=== PATIENT | male | born 1980 | race African-American/Black ===

== ENCOUNTER 2023-07-07 13:37 | Emergency (ER) | payer MEDICARE, OTHER ==
[2023-07-07 14:15] VITALS: O2SAT 99
--- NOTE | 2023-07-07 14:34 | XRAY Report ---
PROCEDURE: Shoulder 2+V RT INDICATIONS: injury TECHNIQUE: 3 views of the shoulder were acquired. COMPARISON: None. FINDINGS: Bones: No fractures or dislocations. No suspicious bony lesions. Visualized ribs appear intact. Soft tissues: No suspicious soft tissue calcifications. The visualized lungs are within normal limi ts. IMPRESSION: No acute fracture. No osseous lesion. If symptoms and/or clinical suspicion for patholog y continue, further assessment with repeat plain films, or advanced imaging (e.g., CT, MRI, or bone s can) is recommended for further assessment. Reviewed by: Jose Buenrostro MD on 07/07/2023 2:32 PM PST Approved by: Jose Buenrostro MD on 07/07/2023 2:32 PM PST Station ID: [id number]
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
[2023-07-07] MEDS: ACETAMINOPHEN 325 MG TABLET PO STA (17:11)
[2023-07-07] MEDS: IBUPROFEN 600 MG TABLET PO STA (17:11)
[2023-07-07 17:28] VITALS: BP 146/92
== END 2023-07-07 17:19 | disposition home or self-care (01) ==
LOC: ED 13:37
DX: S43.51XA Sprain of right acromioclavicular joint, initial encounter (principal); V49.9XXA Car occupant (driver) (passenger) injured in unspecified traffic accident, initial encounter; F17.200 Nicotine dependence, unspecified, uncomplicated
CPT/HCPCS: 73030; 99283; A9270

== ENCOUNTER 2024-08-22 08:04 | Inpatient (IN) ==
[2024-08-22] MEDS: ALPRAZolam 0.25 MG TABLET PO STA (09:08)
[2024-08-22] MEDS: cefTAZidime 2 GM in SODIUM CHLORIDE 0.9% MINIBAG 100 ML IV STA (09:33)
[2024-08-22] MEDS: VANCOMYCIN INJ 1 GM, VANCOMYCIN INJ 500 MG in SODIUM CHLORIDE 0.9% 500 ML IV STA (10:05)
--- NOTE | 2024-08-22 10:51 | XRAY Report ---
PROCEDURE: XR Hand 3+V RT INDICATIONS: infection TECHNIQUE: 3 views of the hand(s) acquired. COMPARISON: None. FINDINGS: Bones: No fractures or dislocations. No suspicious bony lesions. Soft tissues: No suspicious soft tissue calcifications or masses. Diffuse soft tissue swelling in th e hand. No soft tissue gas or radiopaque foreign body noted. IMPRESSION: No acute bony abnormality. Diffuse soft tissue swelling. No soft tissue gas or radiopaque foreign bod y. Reviewed by: Reinier Fregoso MD on 08/22/2024 10:50 AM PDT Approved by: Reinier Fregoso MD on 08/22/2024 10:50 AM PDT Station ID: [id number]
--- NOTE | 2024-08-22 12:46 | HISTORY & PHYSICAL EXAMINATION ---
Chief Complaint Chief Complaint Chief Complaint: RIght hand pain and draining abscess History of Present Illness History of Present Illness HPI Comment/Other: 43 yo LHD M presents to the ED for Right pain and draining abscess since Thrusd ay. He does not remember any trauma to this area however he has been working on a shed for the last couple of days. He has noticed increased redness and swelling. He then started to have draining pus. Denies systemic symptoms. Last meal was at 0730 this morning. Colonoscopy Questionnaire In the last 30 days have you experienced these symptoms? PFSH Active Problems All Active Problems (Updated 08/22/24 @ 12:46 by Fransico Peraza MD) Infection of right hand (Acute) Medical History Medical History (Updated 08/22/24 @ 12:46 by Fransico Peraza MD) No pertinent past medical history Surgical History Surgical History (Updated 08/22/24 @ 12:40 by Reyna Bhagat RN) No pertinent past surgical history Social History Social History Smoking Status: Current every day smoker Do you vape?: No Relationship: Do you feel safe in your home environment?: Yes Suffered physical, verbal, emotional, or financial abuse?: No History of Abuse: No POLST Patient has POLST: No Meds/Allgy Allergies Allergies Allergy/AdvReac Type Severity Reaction Status Date / Time iodine Allergy Intermediate Hives Verified 08/22/24 08:27 Fish Containing Products AdvReac Edema Verified 08/22/24 08:27 Penicillins AdvReac Rash Verified 08/22/24 08:27 strawberry ([place]) AdvReac Hives Verified 08/22/24 08:27 Exam Exam Vital Signs: Vital Signs x48h Temp Pulse Resp BP Pulse Ox 08/22/24 10:26 93 14 145/84 H 98 08/22/24 08:19 37.1 C 89 20 134/70 H 94 RIght hand swelling and open wound on the ulnar boarder of the hand no swelling or streaking proximal to the wrist. Able to make a composit fist FIres AIN/PIN/Radial nerve distribution. RIght hand xrays - no fractures or foreign bodies. SOft tissue swelling noted. Impression/Plan Problem List (1) Infection of right hand: Plan 43 yo LHD M with right hand abscess. He will need a right hand I&D. THe risks, benefits and alternatives of the procedure included bleeding, infection, damage to surrounding tissues, stiffness, ongoing pain, need for further surrgeries and anesthesia risks. He understood the risks and wanted to move forward with the surgery. He was consented for a right hand I&D.
--- NOTE | 2024-08-22 12:48 | ED Physician Documentation ---
PD HPI UPPER EXT INJURY Stated complaint Stated Complaint: RT HAND BUG BITE Chief complaint Chief Complaint: Wound History obtained from History obtained from: Patient Additonal information Additional information: The patient comes to the emergency department chief complaint of swelling and pain of his right hand that started about 4 days ago but has gotten markedly worse over the last couple of days. He does not really know exactly what caused the wound. He states that At first it just looked like a pimple, but then it seemed to develop ahead so he began to try to squeeze it. The skin came off the top and then it turned into a wound. He states that he has had some bloody and purulent drainage coming out. He states that it really hurts a lot now and it has become extremely swollen. He denies fevers or chills. He is not a diabetic. Meds/Allgy Allergies Allergies Allergy/AdvReac Type Severity Reaction Status Date / Time iodine Allergy Intermediate Hives Verified 08/22/24 08:27 Fish Containing Products AdvReac Edema Verified 08/22/24 08:27 Penicillins AdvReac Rash Verified 08/22/24 08:27 strawberry ([place]) AdvReac Hives Verified 08/22/24 08:27 PFSH Active Problems All Active Problems (Updated 08/22/24 @ 12:54 by Rose Mary Kidd MD) Infection of right hand (Acute) Medical History Medical History (Updated 08/22/24 @ 12:54 by Rose Mary Kidd MD) No pertinent past medical history Surgical History Surgical History (Updated 08/22/24 @ 12:40 by Reyna Bhagat RN) No pertinent past surgical history Social History Social History Smoking Status: Current every day smoker Do you vape?: No Relationship: Do you feel safe in your home environment?: Yes Suffered physical, verbal, emotional, or financial abuse?: No History of Abuse: No POLST Patient has POLST: No Exam Exam Vital Signs: Vital Signs x48h Temp Pulse Resp BP Pulse Ox 08/22/24 12:38 88 16 143/71 H 100 08/22/24 10:26 93 14 145/84 H 98 08/22/24 08:19 37.1 C 89 20 134/70 H 94 Constitutional normal general appearance and no apparent distress HENMT normocephalic, head/scalp atraumatic, external nose normal and oral mucous membranes normal Eyes EOMs intact bilaterally Neck/C-Spine visual inspection normal and supple Respiratory breath sounds equal bilaterally, normal respiratory effort and clear to auscultation bilaterally Cardiovascular normal heart rate noted, regular rhythm noted and no edema Genitourinary no CVA tenderness Extremities Markedly edematous right hand over the ulnar most aspect overlying the fifth metacarpal bone. Entire hand is edematous but especially so over the ulnar half and mostly over the dorsum though some edema extends to the palmar aspect and down into the wrist on that side. He has full range of motion of his fingers. No distinct flexor tendon tenderness. Appears to have some erythema though somewhat difficult to discern secondary to the patient's skin pigmentation. Neurology Alert, grossly intact Psychiatry mental status grossly normal Skin See description of skin under musculoskeletal exam; edema, draining wound with blood-tinged purulent drainage on the ulnar most aspect of the hand overlying the 5th metacarpal. Results Vitals Vitals: Vital Signs - 24 hr 08/22/24 08:19 08/22/24 10:26 08/22/24 12:38 Temperature 37.1 C Temperature Source Temporal Artery Scan Pulse Rate 89 93 88 Respiratory Rate 20 14 16 Blood Pressure 134/70 H 145/84 H 143/71 H O2 Saturation 94 98 100 O2 Source Room air Room air Room air Pain Intensity 10 5 6 Oxygen O2 Source Room air Rads (name of study) Right hand x-ray series: Relevant Findings:: Final report received and See rad report (Soft tissue swelling but no subcutaneous emphysema. No bony injury.) PD Medical Decision Making ED course Complexity details: reviewed old records, reviewed results, re-evaluated patient, considered differential, d/w patient, d/w family and d/w polymer materials consultant ED course: The patient was treated symptomatically with some Dilaudid and Xanax and was also immediately started on ceftazidime and vancomycin. He is allergic to penicillins. The patient refused blood draw though I had discussed with him that this would be helpful since he will probably go to the OR and stay the night in the hospital. I discussed the case with Dr. Peraza who is on-call for orthopedics and x-ray was obtained as requested. This showed soft tissue edema but otherwise unremarkable. He did come see the patient and plans to take the patient to the operating room. The patient on reevaluation is much more comfortable after receiving pain medication. Discharge Plan Discharge Patient Disposition: ED Transfer to [facility] Condition: Serious Clinical Impression: Infection of right hand Print Language: Latvian Patient Instructions: Surgery Anesthesia After Stand Alone Forms: PCP List
[2024-08-22] MEDS ORDERED: fentaNYL 100 MCG/2 ML VIAL ONE ×2 (13:20→19:53)
[2024-08-22] MEDS ORDERED: MIDAZOLAM 2 MG/2 ML VIAL ONE (13:20)
[2024-08-22] MEDS ORDERED: PROPOFOL 200 MG/20 ML VIAL IVP ONE (13:20)
--- NOTE | 2024-08-22 13:43 | ANESTHESIA PROCEDURE NOTE ---
Pre-Anesthesia VS, & Labs Diagnosis Surgical Diagnosis:: Infected right hand Procedure Procedure: I&D right hand Vitals Vital Signs: Temp Pulse Resp BP Pulse Ox 37.1 C 88 16 143/71 H 100 08/22/24 08:19 08/22/24 12:38 08/22/24 12:38 08/22/24 12:38 08/22/24 12:38 NPO NPO: Other (Since 0730am) Meds/Allgy Allergies Allergies Allergy/AdvReac Type Severity Reaction Status Date / Time iodine Allergy Intermediate Hives Verified 08/22/24 08:27 Fish Containing Products AdvReac Edema Verified 08/22/24 08:27 Penicillins AdvReac Rash Verified 08/22/24 08:27 strawberry ([place]) AdvReac Hives Verified 08/22/24 08:27 PFSH Active Problems All Active Problems (Updated 08/22/24 @ 13:43 by Dorys Blue CRNA) Infection of right hand (Acute) Medical History Medical History Smoking greater than 10 pack years Surgical History Surgical History (Updated 08/22/24 @ 13:43 by Dorys Blue CRNA) History of facial surgery denies any anesthesia complications Social History Social History Smoking Status: Current every day smoker Do you vape?: No Relationship: Do you feel safe in your home environment?: Yes Suffered physical, verbal, emotional, or financial abuse?: No History of Abuse: No POLST Patient has POLST: No Anesthesia Exam (Expanded) Exam General: Oriented x3, Cooperative and Other (Patient sedate, but answers questions. Received xanax earlier in the day) Dental: WNL Mouth Openin Fingerbreadth Neck Mobility: Normal Mallampati classification: III Thyromental Distance: 4-6 cm Exam Exam Vital Signs: Vital Signs x48h Temp Pulse Resp BP Pulse Ox 08/22/24 12:38 88 16 143/71 H 100 08/22/24 10:26 93 14 145/84 H 98 08/22/24 08:19 37.1 C 89 20 134/70 H 94 Plan Plan Anesthesia Type: General Consent for Procedure(s) Verified and Reviewed: Yes Code Status: Attempt Resuscitation ASA Classification ASA classification: 2-Mild systemic disease Is this case an emergency?: Yes
--- NOTE | 2024-08-22 15:05 | ED Physician Documentation ---
PD HPI SKIN Stated complaint Stated Complaint: RT HAND BUG BITE Chief complaint Chief Complaint: Wound History obtained from History obtained from: Patient Additional information Additional information: Patient comes to the emergency department chief complaint of right hand swelling and pain that started about 4 days ago. He states that he is building a shop at his property and that he noticed a large spider that had come down on a web. He states he knocked it to the ground and smashed it but then, after going to bed, he woke up noticing that he had a stinging painful sensation in his right hand. When he turned on the light, he saw that he had a red bump and that his hand was a little bit swollen. The patient states he would think too much of it but wondered if he had had another spider bite him. He states that after couple days, he noticed that the area started to become increasingly enlarged and painful and that the bump had developed a head. He states he tried squeezing it and getting it to drain which did unroofed the pustule, but the swelling and pain has just gotten worse worse. He states that now, he has what looks like pus draining out of the wound. The patient denies any other lesions. No fevers or chills. He states the pain and swelling are starting to spread up into his wrist. He can still move his fingers. No other complaints at this time. Meds/Allgy Allergies Allergies Allergy/AdvReac Type Severity Reaction Status Date / Time iodine Allergy Intermediate Hives Verified 08/22/24 08:27 Fish Containing Products AdvReac Edema Verified 08/22/24 08:27 Penicillins AdvReac Rash Verified 08/22/24 08:27 strawberry ([place]) AdvReac Hives Verified 08/22/24 08:27 PFSH Active Problems All Active Problems (Updated 08/22/24 @ 13:43 by Dorys Blue CRNA) Infection of right hand (Acute) Medical History Medical History Smoking greater than 10 pack years Surgical History Surgical History (Updated 08/22/24 @ 13:43 by Dorys Blue CRNA) History of facial surgery denies any anesthesia complications Social History Social History Smoking Status: Current every day smoker Do you vape?: No Relationship: Do you feel safe in your home environment?: Yes Suffered physical, verbal, emotional, or financial abuse?: No History of Abuse: No POLST Patient has POLST: No Exam Exam Vital Signs: Vital Signs x48h Temp Pulse Resp BP Pulse Ox 08/22/24 14:00 87 14 97 08/22/24 12:38 88 16 143/71 H 100 08/22/24 10:26 93 14 145/84 H 98 08/22/24 08:19 37.1 C 89 20 134/70 H 94 Constitutional normal general appearance and no apparent distress Patient is very anxious about the examination of his right hand, but calms with redirection.You HENMT normocephalic, head/scalp atraumatic, external nose normal and oral mucous membranes normal Eyes EOMs intact bilaterally Neck/C-Spine visual inspection normal and supple Respiratory breath sounds equal bilaterally, normal respiratory effort and clear to auscultation bilaterally Cardiovascular normal heart rate noted, regular rhythm noted and no edema Gastrointestinal abdomen normal to inspection, abdomen soft to palpation, nontender to palpation and nondistended Genitourinary no CVA tenderness Extremities normal to inspection Neurology Alert, grossly intact Psychiatry mental status grossly normal Skin skin color normal Results Vitals Vitals: Vital Signs - 24 hr 08/22/24 08:19 08/22/24 10:26 08/22/24 12:38 Temperature 37.1 C Temperature Source Temporal Artery Scan Pulse Rate 89 93 88 Respiratory Rate 20 14 16 Blood Pressure 134/70 H 145/84 H 143/71 H O2 Saturation 94 98 100 O2 Source Room air Room air Room air Pain Intensity 10 5 6 08/22/24 14:00 Temperature Temperature Source Pulse Rate 87 Respiratory Rate 14 Blood Pressure O2 Saturation 97 O2 Source Room air Pain Intensity Oxygen O2 Source Room air Discharge Plan Discharge Patient Disposition: ED Transfer to [facility] Condition: Serious Clinical Impression: Infection of right hand Print Language: Armenian Patient Instructions: Surgery Anesthesia After Stand Alone Forms: PCP List
[2024-08-22] MEDS: HYDROmorphone 1 MG/ML SYRINGE IVP STA (17:37)
[2024-08-22] MEDS ORDERED: BUPIVACAINE 0.25% PF 30 ML VIAL ONE (17:41)
[2024-08-22] MEDS ORDERED: ONDANSETRON 4 MG/2 ML VIAL IVP PRN ×4 (18:10→19:42)
[2024-08-22] MEDS ORDERED: HYDROmorphone 0.5 MG/0.5 ML SYRINGE IVP PRN ×2 (18:10→18:43)
[2024-08-22] MEDS ORDERED: MORPHINE 2 MG/ML CARPUJECT IVP PRN ×3 (18:10→19:42)
[2024-08-22] MEDS ORDERED: fentaNYL 100 MCG/2 ML VIAL IVP PRN ×2 (18:10→18:43)
[2024-08-22] MEDS ORDERED: NALOXONE 0.4 MG/ML VIAL IVP PRN ×3 (18:10→19:42)
[2024-08-22] MEDS ORDERED: ATROPINE ABBOJECT 1 MG/10 ML SYRINGE IVP PRN ×3 (18:10→19:42)
[2024-08-22 18:38] LABS: BASOPHILS % (AUTO) 0.3 %; EOSINOPHILS # (AUTO) 0.3 10^3/uL (0.0-0.7); EOSINOPHILS % (AUTO) 3.4 %; HCT - HEMATOCRIT 42.4 % (42.0-52.0); HGB - HEMOGLOBIN 13.6 g/dL (14.0-18.0); LYMPHOCYTES # (AUTO) 2.1 10^3/uL (1.5-3.5); MEAN CORPUSCULAR HEMOGLOBIN 28.7 pg (27.0-31.0); MEAN CORPUSCULAR HGB CONC 32.1 g/dL (32.0-36.0); MEAN CORPUSCULAR VOLUME 89.5 fL (80.0-94.0); MEAN PLATELET VOLUME 9.3 fL (7.4-11.4); MONOCYTES # (AUTO) 0.9 10^3/uL (0.0-1.0); MONOCYTES % (AUTO) 11.3 %; NEUTROPHILS # (AUTO) 4.4 10^3/uL (1.5-6.6); NEUTROPHILS % (AUTO) 57.9 %; PLT - PLATELET COUNT 255 10^3/uL (130-450); RED BLOOD COUNT 4.74 10^6/uL (4.70-6.10); RED CELL DISTRIBUTION WIDTH 13.2 % (12.0-15.0); WHITE BLOOD COUNT 7.6 x10^3/uL (4.8-10.8)
--- OUTSIDE RECORDS SUMMARY | 2024-08-22 18:47 | EXTERNAL MEDICAL SUMMARY RPT | Continuity of Care Document ---
Author Organization [place] Address [address] [address] Phone Problems date description facility 2024-08-22 12:48 Local infection of t he skin and subcutaneous tissue, unspecified [facility] 2024-08-22 12:54 Local infection of t he skin and subcutaneous tissue, unspecified [facility] 2024-08-22 18:14 Local infection of t he skin and subcutaneous tissue, unspecified [facility] Social History date description facility
[2024-08-22 18:51] LABS: ALBUMIN 3.6 g/dL (3.2-5.5); ALBUMIN/GLOBULIN RATIO 1.3 (1.0-2.2); BILIRUBIN,TOTAL 0.6 mg/dL (0.2-1.0); CALCIUM 8.5 mg/dL (8.5-10.3); CREATININE 0.8 mg/dL (0.6-1.3); POTASSIUM 3.9 mmol/L (3.5-4.5); TOTAL PROTEIN 6.4 g/dL (6.4-8.9)
[2024-08-22] MEDS ORDERED: ONDANSETRON 4 MG/2 ML VIAL ONE ×2 (19:04→19:53)
[2024-08-22] MEDS: LACTATED RINGERS 1,000 ML IV SCH ×3 (19:21→19:47)
--- OUTSIDE RECORDS SUMMARY | 2024-08-22 19:30 | EXTERNAL MEDICAL SUMMARY RPT | Continuity of Care Document ---
Author Organization [place] Address [address] [address] Phone Problems date description facility 2024-08-22 12:48 Local infection of t he skin and subcutaneous tissue, unspecified [facility] 2024-08-22 12:54 Local infection of t he skin and subcutaneous tissue, unspecified [facility] 2024-08-22 18:14 Local infection of t he skin and subcutaneous tissue, unspecified [facility] 2024-08-22 18:43 Local infection of t he skin and subcutaneous tissue, unspecified [facility] 2024-08-22 18:45 Local infection of t he skin and subcutaneous tissue, unspecified [facility] Results/Labs test date facility value unit notes Result panel 1 NUCLEATED RED BLOOD CELLS AUTO 2024-08-22 18:30 [facility] 0.0 /100wbc (missing) BASOPHILS # (AUTO) 2024-08-22 18:30 [facility] 0.0 10 3/ul (missing) NRBC ABSOLUTE COUNT (AUTO) 2024-08-22 18:30 [facility] 0.00 x10 3/ul (missing) EOSINOPHILS # (AUTO) 2024-08-22 18:30 [facility] 0.3 10 3/ul (missing) BILIRUBIN,TOTAL 2024-08-22 18:30 [facility] 0.6 mg /dl As of November 2022 testing method has changed, this may include reference ranges. CREATININE 2024-08-22 18:30 [facility] 0.8 mg/dl As of November 2022 testing method has changed, this may include reference ranges. MONOCYTES # (AUTO) 2024-08-22 18:30 [facility] 0.9 10 3/ul (missing) ALBUMIN/GLOBULIN RATIO 2024-08-22 18:30 [facility] 1.3 (missing) (missing) CHLORIDE 2024-08-22 18:30 [facility] 106 mmol/l As of November 2022 testing method has changed, this may include reference ranges. GFR - MDRD 2024-08-22 18:30 [facility] 129 (matheus murcia) Social History date description facility
--- NOTE | 2024-08-22 19:32 | OPERATIVE REPORT ---
Operative Report General Admit Date: 08/22/24 Procedure Data: Operation Date: 08/22/24 14:45 Proposed Procedures p I&D Abscess RIGHT HAND(Right) - Fransico Peraza MD Actual Procedures p I&D Abscess RIGHT HAND(Right) - Fransico Peraza MD Pre-Op Diagnosis: SEPTIC RIGHT HAND Anesthesia Type General Case Staff Anesthesia Provider: Dorys Blue Assisting Provider: Camryn Townsend Case Times Procedure Start: 08/22/24 18:29 Procedure End: 08/22/24 19:11 Time out: 08/22/24 18:28 Other Other Information/Narrative: Laterality: RIGHT Preoperative diagnosis: Hand Infection Procedure performed: Hand Incision and Drainage Postoperative diagnosis: Same Primary Surgeon: Fransico Peraza MD Secondary Surgeon: CHEL Sainz Physician [employer] was used throughout the entirety of the case. This operation could not have been safely performed (without compromising the technical results or length of the procedure) without the assistance of a skilled surgical lead. A surgical lead was medically necessary for room set up, patient positioning, draping, retraction, visualization, reduction, fixation and closure. They were essential for the success of the case. Anesthesia: General EBL: 10 ml Tourniquet: 0 minutes @ 250 mmHg Implants: None Indication For Surgery: Draining RIGHT hand Abscess. The risks, benefits, and alternatives were discussed. Risks include pain, bleeding, infection, damage to nearby structures and cartilage, lack of symptom relief, need for further surgery, DVT, PE, stroke, and . Written consent was obtained. Operative Findings: Hand purulence Procedure in Detail: The patient was met in the pre-operative hold area. Consent was verified and operative extremity was signed. The patient then met with anesthesia and was brought back to the operating room. The patient was placed supine on the operating table. Anesthetic was administered. The extremity was then prepped and draped in the usual sterile fashion. A timeout was performed per protocol. All were in agreement and we proceeded. An incision was placed focused over the main area of concern along the ulnar boarder of the hand. Scissor dissection was brought down through the subcutaneous tissues. Purulence immediately drained from the wound. Cultures were taken from the area of infection. We then used a hemostat to break up all adhesions across the dorsum of the hand. We were easily able to track to the radial border of the hand, MCPs of all fingers and to the wrist joint. A counter incision was made along the radial border of the hand to help with irrigation. The wound was the copiously irrigated with 9L of sterile fluid. The skin was closed with simple 2-0 Nylon sutures. A splint and sterile dressing was applied. Postoperative Plan: Admit to the floor for IV antibiotics Strict Elevation Non weight bearing of the operative extremity Fransico Peraza MD
[2024-08-22] MEDS ORDERED: SODIUM CHLORIDE FLUSH 0.9% 10 ML SYRINGE IVP PRN (19:33)
[2024-08-22] MEDS ORDERED: ACETAMINOPHEN 325 MG TABLET PO PRN (19:33)
[2024-08-22] MEDS ORDERED: ONDANSETRON ODT 4 MG TABLET TL PRN (19:33)
--- NOTE | 2024-08-22 19:43 | ANESTHESIA POST OP EVALUATION ---
Anesthesia Post Eval Post Anesthesia Eval Vitals: Last Vital Signs Temp 36.6 C 08/22/24 19:21 Pulse 66 08/22/24 19:35 Resp 12 08/22/24 19:35 BP 140/103 H 08/22/24 19:35 Pulse Ox 97 08/22/24 19:35
[2024-08-22] MEDS: ceFAZolin (2G) 2 GM in SODIUM CHLORIDE 0.9% MINIBAG 100 ML IV ONE ×2 (19:45→19:46)
[2024-08-22] MEDS: HYDROmorphone 0.5 MG/0.5 ML SYRINGE IVP PRN (19:52)
[2024-08-22] MEDS ORDERED: HYDROmorphone 0.5 MG/0.5 ML SYRINGE ONE (19:53)
[2024-08-22] MEDS: fentaNYL 100 MCG/2 ML VIAL IVP PRN (19:58)
[2024-08-22] MEDS: DOCUSATE SODIUM 100 MG CAPSULE PO SCH (21:40)
[2024-08-22] MEDS: VANCOMYCIN INJ 1.25 GM in SODIUM CHLORIDE 0.9% 250 ML IV SCH (21:42)
[2024-08-22] MEDS ORDERED: oxyCODONE 5 MG TABLET ONE (23:14)
[2024-08-22] MEDS: oxyCODONE 5 MG TABLET PO PRN (23:22)
[2024-08-23] MEDS: SODIUM CHLORIDE FLUSH 0.9% 10 ML SYRINGE IVP SCH (00:52)
[2024-08-23] MEDS ORDERED: VANCOMYCIN 1 GM VIAL ONE (05:34)
[2024-08-23] MEDS ORDERED: SODIUM CHLORIDE 0.9% 250 ML IV ONE (05:34)
[2024-08-23] MEDS ORDERED: oxyCODONE 5 MG TABLET ONE (06:10)
[2024-08-23 07:53] VITALS: TEMP 97.7
[2024-08-23 07:54] VITALS: BP 116/68; O2SAT 98
--- NOTE | 2024-08-23 08:13 | Discharge Summary ---
"Discharge Summary Admit Date: 08/22/24 Discharge Date: 08/23/24 Discharging Provider: CHEL Hernandez Code Status: Attempt Resuscitation DIAGNOSES Admission Diagnoses: Right hand abscess Discharge Diagnoses with Status of Each Condition: Right hand abscess - improved status post incision and debridement in operating room on 08/22/24 HPI History of Present Illness: 43-year-old [id number] male presented to the emergency department on 08/22/2024 for right hand pain with draining abscess on the ulnar border of the right fifth digit since 08/18/2024. He cannot recall any trauma to the area however he has been working in the shed for several days. He noticed increased erythema and swelling about the area and had draining pus prior to presenting to the emergency department. He denies systemic symptoms including fever and chills. CONSULTS | PROCEDURES Procedures: Incision and debridement right hand 08/22/[address] Peraza at [facility] Hospital Course: On 08/22/2024 the patient was brought to the operating room for incision debridement of the right hand. In the operating room cultures were obtained of the right hand abscess. The wound was irrigated. The right hand was splinted with a volar resting splint. He was transferred to the floor and continued on IV vancomycin with strict elevation protocol to the right hand. On postoperative day 1 his vital signs were stable and he had no systemic symptoms including fever and chills. Clinically there is decreased erythema and effusion about the right hand. He was discharged home on postoperative day 1 with oral antibiotics clindamycin 450 three times daily with close outpatient follow-up scheduled for the orthopedic clinic on Thursday08/29/2024. Preliminary cultures grew 4+ staphylococcous aureus. ALLERGIES Allergies Allergy/AdvReac Type Severity Reaction Status Date / Time iodine Allergy Intermediate Hives Verified 08/22/24 08:27 Fish Containing Products AdvReac Edema Verified 08/22/24 08:27 Penicillins AdvReac Rash Verified 08/22/24 08:27 strawberry ([place]) AdvReac Hives Verified 08/22/24 08:27 MEDICATIONS Ambulatory Orders Medication Instructions Recorded Confirmed acetaminophen 325 mg tablet 975 mg (3 x 325 mg) PO Q4HR PRN 08/23/24 Pain 1 to 4, or Fever 10 days #100 tabs clindamycin HCl 300 mg capsule 450 mg (1.5 x 300 mg) PO TID #90 08/23/24 (Cleocin HCl) caps docusate sodium 100 mg capsule 100 mg PO BID 14 days #28 caps 08/23/24 ondansetron 4 mg disintegrating 4 mg translingual Q6HR PRN Nausea 08/23/24 tablet / Vomiting #8 tabs oxycodone 5 mg tablet 5 mg PO Q4HR PRN Pain 5 to 7 #12 08/23/24 tabs PHYSICAL EXAM AT DISCHARGE Vital Signs: Vital Signs x48h Temp Pulse Resp BP Pulse Ox 08/23/24 07:25 36.5 C 78 18 116/68 98 08/23/24 05:57 37.4 C 77 16 122/65 97 Physical Exam Other/Comments: Well developed, well nourished, 43 year old male, no acute distress Skin is intact without effusion, warmth, ecchymosis or obvious clinical deformity. Nylon sutures in place, incisions well approximated. Mild erythematous cellulitis about dorsal right wrist. Active wrist and finger range of motion intact. Neurovascular intact to right upper extremity. No active drainage from incision sites. LABS 08/22/24 18:30 08/22/24 18:30 FOLLOW UP Follow Up: Dr Peraza at [facility] on Thursday08/29/24 TIME SPENT Time Spent in Discharge (Minutes): 30 Discharge Plan Discharge Patient Disposition: 01 GROUP HOME, Self Care Condition: Stable Medically Cleared Date:: 08/23/24 Prescriptions: New acetaminophen 325 mg Tablet 975 mg PO Q4HR PRN (Reason: Pain 1 to 4, or Fever) 10 Days Qty: 100 0RF docusate sodium 100 mg Capsule 100 mg PO BID 14 Days Qty: 28 0RF ondansetron 4 mg Tablet,Disintegrating 4 mg translingual Q6HR PRN (Reason: Nausea / Vomiting) Qty: 8 0RF oxycodone 5 mg Tablet 5 mg PO Q4HR PRN (Reason: Pain 5 to 7) Qty: 12 0RF clindamycin HCl [Cleocin HCl] 300 mg capsule 450 mg PO TID Qty: 90 0RF Discontinued diphenhydramine-acetaminophen 25-500 mg-mg/mL solution 30 ml PO QPM PRN (Reason: sleep) Activity Restrictions: Additional Comments Activity Restrictions/Additional Instructions: SURGICAL PROCEDURE: Incision and Debridement Right Hand SURGEON: Dr Stu Monreal: 08/22/24 ACTIVITY INSTRUCTIONS - You are non weight bearing to the right hand. No pushing, pulling or weight bearing with the right upper extremity until further evaluation. We encourage active movement of the fingers every hour while awake to prevent stiffness. Elevate the hand to reduce pain and swelling. - You must be cleared by your orthopedic provider before operating a vehicle. DRESSING CARE - You have a bulk dressing that is secured with an Sumeet bandage. Leave the dressing in place until your follow up in the orthopedic clinic. - Keep extremity elevated to the level of the heart to reduce swelling. You can use ice on top of the splint to reduce pain and swelling of the extremity. - If you notice fever, chills, redness, excessive drainage or bleeding, a sharp increase in pain that persists after taking pain medication, pain in your calf muscles, chest pain or trouble breathing please unwrap the dressing and investigate. Then call the office with findings for further guidance. If it is after regular clinic hours, please seek care in the emergency department. - If you need to take a shower cover the dressing in a garbage bag and secure it to keep the dressing dry and intact. - In the rare case of any severe chest pain and trouble breathing, seek immediate care, do not delay for a call to the clinic. POST-OPERATIVE INSTRUCTIONS - Ice on top of the splint for 15 minutes if needed for control of pain and swelling - You may resume your normal diet if there is no nausea or vomiting. You may want to avoid spicy, greasy, or heavy foods today to minimize gas. - If nausea or vomiting occurs, don't eat or drink anything for one hour. Then start drinking small amounts of clear liquids. Later, add crackers, gradually building up to your usual diet. - Follow up with the orthopedic clinic in on Thursday08/29/24. Call our office at [phone] with any concerns MEDICATIONS - Take three pills of 325 mg Tylenol (acetaminophen) every 8 hours regardless of pain in a scheduled manner. Do not exceed 3000 mg of Tylenol (from ALL sources, including over the counter combination products) in a 24-hour period due to risk of liver injury. - Take one pill of 5 mg oxycodone by mouth every 4-6 hours as needed for break through pain stronger than 7 out of 10 on a pain scale. Take this for severe pain 1 hour after taking the scheduled Tylenol and ibuprofen. - Take 200 mg of Colace by mouth every 12 hours for constipation. Narcotic medications such as oxycodone may increase your risk of constipation after surgery. - Take 4 mg of Zofran by mouth every 6 hours as needed for uncontrolled nausea or vomiting. If you have persistent nausea and vomiting call our office or seek care in the emergency department. - Take 450 mg of clindamycin every 8 hours by mouth. for 10 days. This is an antibiotic. Take this medication in its entirety. Do not stop this medication early. Diet: Regular Health Concerns: You were admitted to the hospital for an infection of your right hand. You underwent surgery to wash out the infection with sterile fluid. You received IV antibiotics during your hospital stay. You showed improvement and were discharged home. Care Plan Goals: Return to independent home living and functional use of right hand Assessment: Dr. Peraza these instructions with the patient and his partner who verbalized understanding and agreement. Plan of Treatment: Irrigation and debridment of right hand (wash out in the operating room) on 08/22/24 to remove the infection to your right hand Oral antibiotics when returning home Print Language: Armenian Patient Instructions: Surgery Anesthesia After Stand Alone Forms: PCP List Follow-up Care: Fransico Peraza MD [Provider Admit Priv/Credential] -"
--- NOTE | 2024-08-23 11:53 | PHARMACY PROGRESS NOTE ---
Best Possible Medication History Admit Date and Time: 08/22/24 [id number] Home Medications Medication Instructions Recorded Confirmed Type diphenhydramine 25 30 ml PO QPM PRN sleep 08/23/24 08/23/24 History mg-acetaminophen 500 mg/15 mL oral solution Processed by: Pharmacy Medications reviewed in ED?: No Medication History completed: No Patient Interview: Completed Secondary Source(s): Insurance records [facility] Statement: [facility]. As the person ultimately responsible for medication therapy, providers are able to order a medication from an existing home medication list in [facility] via the "Reconcile Routine" prior to Confirmation of that medication by instructional support assistant. Such practice is discouraged except when the physician, in their clinical judgment, deems that a medical need exists for a medication without regard to previous use.
== END 2024-08-23 13:45 | disposition home or self-care (01) | DRG 603 ==
LOC: ED 08:04 → SDS 17:30 → ED 18:13 → MS2 18:44
PROVIDERS: ADMIT Physician Assistant Surgical; ATTEND Physician Assistant Surgical
DX: F17.200 Nicotine dependence, unspecified, uncomplicated; L02.511 Cutaneous abscess of right hand; L03.113 Cellulitis of right upper limb